=== PATIENT | male | born 1980 | race Caucasian/White ===

== ENCOUNTER 2021-01-12 09:00 | Outpatient (RCR) | payer MEDICAID, SELFPAY | END 2021-06-08 09:11 | disposition home or self-care (01) | LOC: HO.PTCHIC 09:00 | PROVIDERS: PCP Family Medicine; Visit Provider Family Medicine | DX: M25.511 Pain in right shoulder (principal); M54.9 Dorsalgia, unspecified | CPT/HCPCS: 97110; 97140; 97161 ==

== ENCOUNTER 2023-01-08 16:36 | Emergency (ER) | payer OTHER, SELFPAY ==
[2023-01-08 17:43] VITALS: BP 150/106; PULSE 87; RESP 16; TEMP 36.4; O2SAT 98; BMI 26.8
--- NOTE | 2023-01-08 17:45 | ED.GENADULT ---
HPI - General Adult General Chief complaint: Dental/Oral Stated complaint: left swollen cheek Time Seen by Provider: 01/08/23 21:53 Source: patient Mode of arrival: ambulatory Limitations: no limitations History of Present Illness HPI narrative: 42 yo male with PMH of DM not on blood thinners here with worsening L upper dental abscess on and off for the past month near broken tooth but now more painful for past three days. No associated fevers or systemic symptoms. Has not been on antibiotics or able to see a dentist. MD complaint: dental abscess Onset (ago): day(s) (few) Location: mouth Radiation: non-radiation Severity: moderate Quality: aching Pain Consistency: constant Relieving factors: none Exacerbating factors: eating Associated symptoms: denies other symptoms Treatments prior to arrival: none Related Data Previous Rx's Medication Instructions Recorded amoxicillin 875 mg-potassium 1 tab PO BID #14 tabs 01/08/23 clavulanate 125 mg tablet morphine 15 mg immediate release 15 mg PO Q6H PRN pain #10 tabs 01/08/23 tablet Allergies Allergy/AdvReac Type Severity Reaction Status Date / Time dulaglutide [From [facility]] Allergy Mild RASH Unverified 10/23/19 19:48 Review of Systems Review of Systems: Constitutional : No Fever, No Chills ENT/Mouth : No swallowing difficulty, no change in voice, positive dental pain, positive jaw pain, positive facial swelling Eyes: No Eye Pain, No Swelling Cardiovascular : No Chest Pain, No SOB Respiratory : No Cough, No Sputum Gastrointestinal : No Nausea, No Vomiting, No Diarrhea Genitourinary : No Dysuria Musculoskeletal : No Myalgias Skin : No rash Neuro : No Weakness, No Numbness, No Headache PMFSH Past Medical History Attestation statement: The following information was validated with the patient. Medical History Diabetes Social History Social History (Updated 01/08/23 @ 22:19 by Shari Campos DO) Patient Tobacco Use Status: Never used Tobacco Smoked in Last 30 Days: No Use of substances other than those prescribed or required for medical reasons: No Advance Directives: No Advance Directives Information Provided: No Physical Exam ED Vital Signs: Vital Signs - 24 hr 01/08/23 17:43 01/08/23 20:01 12/04/23 22:24 Temperature 97.6 F 99.1 F Pulse Rate 87 82 93 Respiratory Rate 16 18 18 Blood Pressure 150/106 H 165/95 H 150/85 H Pulse Oximetry 98 97 99 Oxygen Delivery Method Room Air Room Air Room Air BMI result Body Mass Index 26.8 Appearance: Alert. Oriented X3. No acute distress. Eyes: Pupils equal, round and reactive to light. ENT: Pharynx normal. no trismus no submandibular or sublingual swelling, L upper dental abscess near canine 2cm abscess near gumline with fluctuance no swelling or redness to the face no pain with EOM Neck: Normal inspection. Neck supple. CVS: Normal heart rate and rhythm. Pulses normal. Respiratory: No respiratory distress. Breath sounds normal. Abdomen: Soft and non-tender. Skin: Skin warm and dry. Normal skin color. Normal skin turgor. Extremities: No lower extremity edema. No calf ttp Neuro: Oriented X 3. No motor deficit. No sensory deficit. Course Course Course Narrative: RME performed by Vanita Russo PA-C. Patient is a 42 year old assigned male at presenting to the emergency department with left sided facial swelling and dental pain. Labs ordered. Patient placed back in the waiting room pending room availability and results. Procedures Abscess I/D Site: oral Side (if applicable): left Local Anesthetic: other anesthetic (topical ) Technique: incised with blade Amount of fluid expressed (mL): 2 Sent for culture/gram staining?: No Irrigation: No Packing used?: none Medical Decision Making Medical Decision Making [facility] Narrative: 42 yo male with DM here with c/o L upper molar dental abscess no trismus no sublingual or submandibular swelling no systemic symptoms no signs of deeper space infection and no EOM pain with movements will I+D the abscess and start on augmentin. refer to dentist. Differential Diagnosis Differential Diagnoses: The differential diagnosis associated with the presentation includes dental abscess Admission/Observation Consideration of admission/observation: Escalation of care including admission/observation considered no signs of deeper space infection and lanced in ED - can be managed as outpatient Lab Data [facility] Lab Attestation statement: I reviewed the patient's lab results. 01/08/23 18:51 01/08/23 18:51 Labs: Lab Results 01/08/23 01/08/23 Range/Units 18:51 22:15 WBC 11.8 H (4.8-10.8) X10*3/uL RBC 5.46 (4.60-5.80) X10*6/uL Hgb 16.6 (14.0-18.0) g/dl Hct 47.5 (42.0-52.0) % MCV 87.0 (80.0-98.0) fL MCH 30.4 (27.0-33.0) pg MCHC 34.9 (31.0-36.0) g/dl RDW 12.0 (11.0-16.0) % Plt Count 257 (160-400) X10*3/uL MPV 10.1 (9.4-12.4) fL Immature Gran % (Auto) 0.3 (0.0-0.4) % Neut % (Auto) 73.3 H (45-73) % Lymph % (Auto) 17.7 L (20-40) % Harney % (Auto) 7.0 (2-11) % Eos % (Auto) 0.9 (0-4) % Baso % (Auto) 0.8 (0-2) % Lymph # (Auto) 2.1 (1.2-4.9) X10*3/uL Harney # (Auto) 0.8 (0.1-1.2) X10*3/uL Eos # (Auto) 0.1 (0.0-0.4) X10*3/uL Baso # (Auto) 0.1 (0.0-0.2) X10*3/uL Abs Immat Gran (auto) 0.04 H (0.00-0.03) X10*3/uL Absolute Neuts (auto) 8.6 H (2.0-8.3) x10*3/uL Absolute Nucleated RBC 0.000 (0.0-0.012) X10*3/uL Nucleated RBC % (auto) 0.0 (0.0-0.2) /100WBC ESR 16 H (0-15) MM/HR Sodium 133 L (135-145) mmol/L Potassium 3.9 (3.3-5.1) mmol/L Chloride 101 (96-108) mmol/L Carbon Dioxide 19 L (22-29) mmol/L Anion Gap 17 (12-20) BUN 9 (9-16) mg/dL Creatinine 0.80 (0.5-1.4) mg/dL Estim Creat Clear Calc 113.6 Estimated GFR > 60 Random Glucose 319 H (60-115) mg/dL Lactic Acid 1.4 (0.5-2.0) mmol/L Calcium 10.1 (8.4-10.2) mg/dL Magnesium 1.8 (1.6-2.6) mg/dL Total Bilirubin 1.3 H (0.0-1.0) mg/dL AST 14 (5-37) U/L ALT 19 (0-40) U/L Alkaline Phosphatase 80 (39-117) U/L C-Reactive Protein 2.67 H (< or = 0.50) mg/dL Total Protein 8.2 H (6.5-8.0) g/dL Albumin 4.4 (3.5-5.0) g/dL External Record Review External record reviewed: Outpatient record Prescription Management I considered prescription management with: Pain Medication and Antibiotic Discharge Plan Discharge Clinical Impression: Dental abscess Patient Disposition: Home, Self-Care Instructions: Dental Abscess (ED), Abscess Incision and Drainage (DC) Additional Instructions: soft foods only for 48 hours. you need to see a dentist in the next couple of days please call. return for worsening pain, swelling, fevers, bleeding, confusion or any other concerns. avoid aspirin. Take a probiotic while you are on antibiotics and for at least one week after the antibiotics are finished - this can help protect your GI system from diarrhea and other issues. You can get probiotics by drinking kefir, eating yogurt or culturelle or another pill form of probiotic. Do not take it at the same time as you take the antibiotic.?More than 6 to 8 loose stools a day is not normal seek care if this happens On amoxicillin-clavulanate, softer bowel movements are to be expected. Call your provider if you move your bowels more than 4 times a day, your bowel movements are almost all liquid, or you get a rash.? Prescriptions: New morphine 15 mg tablet 15 mg PO Q6H PRN (Reason: pain) Qty: 10 0RF Rx Instructions: partial fill okay; Partial Fill upon patient request. amoxicillin-pot clavulanate 875-125 mg tablet 1 tab PO BID Qty: 14 0RF Stand Alone Forms: Work/School Release
[2023-01-08 19:00] LABS: MANUAL DIFF FLAG NO
[2023-01-08 19:02] LABS: Basophils Absolute Auto 0.1 X10*3/uL (0.0-0.2); Basophils Percent Auto 0.8 % (0-2); Eosinophils Absolute Auto 0.1 X10*3/uL (0.0-0.4); Eosinophils Percent Auto 0.9 % (0-4); Hematocrit 47.5 % (42.0-52.0); Hemoglobin 16.6 g/dl (14.0-18.0); Imm Gran Abs Auto 0.04 X10*3/uL (0.00-0.03); Imm Gran Pct Auto 0.3 % (0.0-0.4); Lymphocytes Absolute Auto 2.1 X10*3/uL (1.2-4.9); Lymphocytes Percent Auto 17.7 % (20-40); Mean Corpuscular HGB Conc 34.9 g/dl (31.0-36.0); Mean Corpuscular Hemoglobin 30.4 pg (27.0-33.0); Mean Platelet Volume 10.1 fL (9.4-12.4); Monocytes Absolute Auto 0.8 X10*3/uL (0.1-1.2); Neutrophils Absolute Auto 8.6 x10*3/uL (2.0-8.3); Neutrophils Percent Auto 73.3 % (45-73); Platelet Count 257 X10*3/uL (160-400); Red Blood Count 5.46 X10*6/uL (4.60-5.80); White Blood Count 11.8 X10*3/uL (4.8-10.8)
[2023-01-08 19:18] LABS: Alanine Aminotransferase 19 U/L (0-40); Albumin Level 4.4 g/dL (3.5-5.0); Alkaline Phosphatase 80 U/L (39-117); Anion Gap 17 (12-20); Aspartate Amino Transferase 14 U/L (5-37); Bilirubin Total 1.3 mg/dL (0.0-1.0); Blood Urea Nitrogen 9 mg/dL (9-16); C Reactive Protein 2.67 mg/dL (< or = 0.50); Calcium 10.1 mg/dL (8.4-10.2); Carbon Dioxide 19 mmol/L (22-29); Chloride 101 mmol/L (96-108); Creatinine Clr Calc Pharmacy 113.6; Estimated Glomerular Filt Rate > 60; Glucose Random 319 mg/dL (60-115); Magnesium 1.8 mg/dL (1.6-2.6); Potassium 3.9 mmol/L (3.3-5.1); Sodium 133 mmol/L (135-145); Total Protein 8.2 g/dL (6.5-8.0)
[2023-01-08 19:41] LABS: Erythrocyte Sedimentation Rate 16 MM/HR (0-15)
[2023-01-08 20:01] VITALS: BP 165/95; PULSE 82; RESP 18; TEMP 37.3; O2SAT 97
[2023-01-08 22:24] VITALS: BP 150/85; PULSE 93; RESP 18; O2SAT 99
[2023-01-08 22:34] LABS: Lactic Acid 1.4 mmol/L (0.5-2.0)
[2023-01-08] MEDS: Morphine Sulfate Immed Release 15 MG TABLET PO (23:19)
[2023-01-08] MEDS: Ondansetron ODT 4 MG TAB.RAPDIS TRANSLINGU (23:20)
[2023-01-08] MEDS: Amoxicillin/Potassium Clav 875 MG TABLET PO (23:20)
== END 2023-01-08 23:21 | disposition home or self-care (01) ==
PROVIDERS: Physician Assistant Medical; Emergency Provider Emergency Medicine
DX: K04.7 Periapical abscess without sinus (principal); Z79.899 Other long term (current) drug therapy
CPT/HCPCS: 36415; 41800; 80053; 83605; 83735; 85025; 85652; 86140; 87040; 99283; 99284

== ENCOUNTER 2023-11-16 05:57 | Emergency (ER) | payer OTHER, SELFPAY ==
[2023-11-16 06:03] VITALS: BP 148/95; PULSE 90; RESP 18; TEMP 36.4; O2SAT 100; BMI 25.3
--- NOTE | 2023-11-16 06:17 | ED.DENTAL ---
HPI - Dental/Oral General Chief complaint: Dental/Oral Stated complaint: face pain after dental surgery Time Seen by Provider: 11/16/23 06:11 Source: patient Mode of arrival: ambulatory Limitations: no limitations History of Present Illness ED Provider: Dr. Valorie Tucker HPI Narrative: Patient comes to the emergency room complaining of dental pain. On October 25, patient had a dental procedure which consisted of removing a teeth. Patient states that he has been feeling well. However, yesterday he started having severe pain in the gums in the side where the teeth were removed. No bleeding. Patient denies fever chills but states that he feels a bit swollen Related Data Previous Rx's ?Medication ?Instructions ?Recorded amoxicillin 875 mg-potassium 1 tab PO BID #14 tabs 01/08/23 clavulanate 125 mg tablet morphine 15 mg immediate release 15 mg PO Q6H PRN pain #10 tabs 01/08/23 tablet chlorhexidine gluconate 0.12 % 15 ml buccal BID #473 mL 11/16/23 mouthwash ketorolac 10 mg tablet 10 mg PO Q8H PRN pain #10 tabs 11/16/23 penicillin V potassium 500 mg 500 mg PO TID 7 days #21 tabs 11/16/23 tablet tramadol 50 mg tablet 50 mg PO BEDTIME PRN pain #5 tabs 11/16/23 Allergies Allergy/AdvReac Type Severity Reaction Status Date / Time dulaglutide [From [facility]] Allergy Mild RASH Unverified 11/16/23 06:07 Review of Systems Review of Systems: Constitutional : No Weight loss, No Fever, No Chills, No Night Sweats, No Fatigue, No Malaise ENT/Mouth : Complaining of gingival pain, dental pain No Ear Pain, No Nasal Congestion, No Sinus Pain, No Hoarseness, No sore throat, No Rhinorrhea, No Swallowing Difficulty Eyes: No Eye Pain, No Swelling, No Redness, No Foreign Body, No Discharge, No Vision Changes Cardiovascular : No Chest Pain, No SOB, No Dyspnea on Exertion, No Orthopnea, No Edema, No Palpitations Respiratory : No Cough, No Sputum, No Wheezing, No Smoke Exposure, No Dyspnea Gastrointestinal : No Nausea, No Vomiting, No Diarrhea, No Constipation, No abdominal Pain, No Hematochezia, No Melena Genitourinary : no irregular bleeding, No Dysuria, No Urinary Frequency, No Hematuria, No Urinary Incontinence, No Urgency, No Flank Pain, No Urinary Flow Changes, No Hesitancy Musculoskeletal : No joint pain, No Myalgias, No Joint Swelling Skin : No Skin Lesions, No rash Neuro : No Weakness, No Numbness, No Paresthesias, No Loss of Consciousness, No Dizziness, No Headache Psych : No Anxiety/Panic, No Depression, No SI/HI/AH/VH, No Social Issues, Heme/Lymph: No Bruising, No Bleeding,No Lymphadenopathy Endocrine : No Polyuria, No Polydipsia, No Temperature Intolerance [facility] Past Medical History Medical History Diabetes Social History Social History (Updated 01/08/23 @ 22:19 by Shari Campos DO) Patient Tobacco Use Status: Never used Tobacco Physical Exam Vital Signs: Vital Signs: Last Vital Signs Temp 97.5 F 11/16/23 06:03 Pulse 90 11/16/23 06:03 Resp 18 11/16/23 06:03 BP 148/95 H 11/16/23 06:03 Pulse Ox 100 11/16/23 06:03 O2 Del Method Room Air 11/16/23 06:03 BMI result Body Mass Index 25.3 Const: Other: Appearance: Alert. Oriented X3. No acute distress. Eyes: Pupils equal, round and reactive to light. ENT: Pharynx normal. Patient has teeth missing secondary to the procedure. Most of the orifices seem healthy. However, the gingiva seems a bit swollen and erythematous. Neck: Normal inspection. Neck supple. No lymph nodes noted. No crepitus CVS: Normal heart rate and rhythm. Pulses normal. Normal S1 and S2 Respiratory: No respiratory distress. Breath sounds normal. No Wheezing. No rales Abdomen: Soft and nontender. No rigidity. No distention. Skin: Skin warm and dry. Normal skin color. Normal skin turgor. Extremities: No lower extremity edema. No Lacerations. No Rash Neuro: Oriented X 3. No motor deficit. No sensory deficit. Moving all extremities. No slurred speech. CN 2 through 12 grossly intact Psych: calm, cooperative, normal affect Medical Decision Making Medical Decision Making MDM Narrative: I discussed with the patient that the best next course of action is to give him IM Toradol for pain control and penicillin p.o.. Patient agrees with plan. Patient will follow-up with his dentist. -patient has been doing well for 3 weeks and all of a sudden now has swollen gingiva, likely gingivitis. However, difficult to assess the forearm it is in the teeth, no obvious pus or abscesses that could be drained Discharge Plan Discharge Clinical Impression: Gingivitis, Pain, dental Patient Disposition: Home, Self-Care Instructions: Gingivitis (ED), Tooth Extraction (DC) Additional Instructions: Please follow-up with your primary care physician tomorrow. If you have any worsening or new symptoms, please return to the emergency room or call 911 Prescriptions: New penicillin V potassium 500 mg tablet 500 mg PO TID 7 Days Qty: 21 0RF ketorolac 10 mg tablet 10 mg PO Q8H PRN (Reason: pain) Qty: 10 0RF Rx Instructions: maximum total duration of 5 days from all oral, intranasal, or parenteral formulations. Do not use NSAIDs with this medication tramadol 50 mg tablet 50 mg PO BEDTIME PRN (Reason: pain) Qty: 5 0RF chlorhexidine gluconate 0.12 % mouthwash 15 ml buccal BID Qty: 473 0RF No Action morphine 15 mg tablet 15 mg PO Q6H PRN (Reason: pain) Qty: 10 0RF Rx Instructions: partial fill okay; Partial Fill upon patient request. amoxicillin-pot clavulanate 875-125 mg tablet 1 tab PO BID Qty: 14 0RF Print Language: Wolof
[2023-11-16] MEDS: Ketorolac Tromethamine 60 MG/2 ML VIAL IM (07:05)
[2023-11-16] MEDS: Penicillin V Potassium 250 MG TABLET 500 MG PO (07:05)
[2023-11-16 07:06] VITALS: BP 134/81; PULSE 94; RESP 20; TEMP 37.2; O2SAT 99
[2023-11-16 07:16] VITALS: BP 134/81; PULSE 94; RESP 20; TEMP 37.2; O2SAT 99
== END 2023-11-16 07:17 | disposition home or self-care (01) ==
PROVIDERS: Emergency Provider Emergency Medicine; PCP Family Medicine
DX: K05.10 Chronic gingivitis, plaque induced (principal); K08.89 Other specified disorders of teeth and supporting structures; E11.9 Type 2 diabetes mellitus without complications; Z79.899 Other long term (current) drug therapy
CPT/HCPCS: 96372; 99284; J1885